=== PATIENT | female | born 1975 | race Caucasian/White ===

== ENCOUNTER 2019-11-28 17:06 | Emergency (ER) | payer OTHER, SELFPAY ==
[2019-11-28 17:27] VITALS: BP 145/82; PULSE 106; RESP 20; TEMP 37.2; O2SAT 98
--- NOTE | 2019-11-28 17:44 | ED.GENADULT ---
HPI - General Adult General Chief complaint: Unspecified Stated complaint: PARASITES? Time Seen by Provider: 11/28/19 17:20 Source: patient Mode of arrival: ambulatory Limitations: no limitations History of Present Illness HPI narrative: Patient is a 44-year-old female who presents to emergency department for evaluation of concern for parasite noting that a family member and her have been experiencing rash and irritation for the last 3 weeks have not seen anyone for this complaint patient on arrival resting comfortably in the room in no distress denies any pain Related Data Allergies Allergy/AdvReac Type Severity Reaction Status Date / Time No Known Allergies Allergy Verified 11/28/19 17:29 Review of Systems Review of Systems: All systems reviewed & are unremarkable except as noted in HPI and below Exam Narrative: Exam Narrative: GENERAL: Well-appearing, well-nourished, and in no acute distress. HEAD: Normocephalic, atraumatic. EYES: PERRLA and EOMI. ENT: Nares clear, no rhinorrhea or epistaxis. Mucous membranes moist. CHEST: Clear to auscultation. No respiratory distress. No wheezes rales or rhonchi HEART: Regular rate and rhythm. No murmur heard. EXTREMITIES: Normal range of motion. No edema. SKIN: Warm, dry, no rash. NEURO: No focal deficits. Alert and oriented x3. Cranial nerves II through XII grossly intact PSYCH: Normal mood and affect. Course Course Emergency Course: Patient in the room in no distress aware of case findings treatment plan and diagnosis agreeing to follow-up as directed or to return if symptoms worsen or concerns Vital Signs Vital signs: Vital Signs Temperature 98.9 F 11/28/19 17: Pulse Rate 106 H 11/28/19 17:27 Respiratory Rate 20 11/28/19 17:27 Blood Pressure 145/82 H 11/28/19 17:27 Pulse Oximetry 98 11/28/19 17:27 Temperature 98.9 F 11/28/19 17:27 Pulse Rate 106 H 11/28/19 17:27 Respiratory Rate 20 11/28/19 17:27 Blood Pressure 145/82 H 11/28/19 17:27 Pulse Oximetry 98 11/28/19 17:27 Medical Decision Making MDM Narrative Medical decision making narrative: Patient in the room in no distress referred to specialist agreeing to follow-up as directed Vital Signs Vital Signs: Vital Signs Temperature 98.9 F 11/28/19 17:27 Pulse Rate 106 H 11/28/19 17:27 Respiratory Rate 20 11/28/19 17:27 Blood Pressure 145/82 H 11/28/19 17:27 Pulse Oximetry 98 11/28/19 17:27 Temperature 98.9 F 11/28/19 17:27 Pulse Rate 106 H 11/28/19 17:27 Respiratory Rate 20 11/28/19 17:27 Blood Pressure 145/82 H 11/28/19 17:27 Pulse Oximetry 98 11/28/19 17:27 Discharge Plan Discharge Clinical Impression: Rash and nonspecific skin eruption Patient Disposition: Home, Self-Care Condition: Stable Instructions: Antibiotic Form, Acute Rash (ED) Additional Instructions: Follow up with your primary care doctor in 5-7 days for re-evaluation. Go to ER for worsening pain, vision changes, nausea/vomiting, fever/chills, weakness, chest pain, shortness of breath, numbness/tingling, slurred speech, difficulty walking, change in mental status etc. or any other concerns. Take any prescribed medications as directed. Follow-up/Referrals: UNKNOWN,DOCTOR [Primary Care Provider] - Dillon Murillo MD [Physician] -
[2019-11-28 17:56] LABS: Add Urine Microscopic? YES; Appearance Urine Cloudy (Clear); Bacteria Urine Trace /hpf; Bilirubin Urine Negative (Negative); Blood Urine 1+ (Negative); Color Urine Yellow (Yellow); Glucose Urine UA 3+ mg/dL (Negative); Ketones Urine Negative (Negative); Leukocyte Esterase Ur 2+ LEU/UL (Negative); Mucus Urine Rare /lpf; Nitrate Urine Negative (Negative); Protein Urine Negative (Negative); Specific Grav Ur 1.033 (1.001-1.035); Squamous Epithelial Cell Urine Many /hpf (Few); Urobilinogen Urine Negative mg/dL (<2.0)
== END 2019-11-28 18:29 | disposition home or self-care (01) ==
PROVIDERS: Emergency Medicine Emergency Medical Services; Emergency Provider Emergency Medicine
DX: R21 Rash and other nonspecific skin eruption (principal)
CPT/HCPCS: 80307; 81001; 87077; 87086; 87088; 99281; 99283

== ENCOUNTER 2020-11-19 23:15 | Emergency (ER) | payer OTHER, SELFPAY ==
[2020-11-19 23:24] VITALS: BP 120/63; PULSE 103; RESP 18; TEMP 36.2; O2SAT 100
--- NOTE | 2020-11-19 23:44 | ED.GENADULT ---
HPI - General Adult General Chief complaint: Extremity Injury, Lower Stated complaint: i think im having a blood clot on my leg Time Seen by Provider: 11/19/20 23:28 History of Present Illness HPI narrative: Patient is a 45-year-old female who presents the emergency department with chief complaint of leg pain. The patient reports that she has multiple varicose veins in her lower extremities and noticed that her left leg in the mid calf she had some slight swelling and pain. Patient reports the pain is worse with movement and improved with rest. Patient also reports that she has had dysuria and also has noticed that she has had a rash present on her abdominal wall. The patient wanted to stop all 3 things checked out while she was ER. Patient has not called her primary care physician patient denies trauma denies smoking denies any other medical problems. Related Data Allergies Allergy/AdvReac Type Severity Reaction Status Date / Time No Known Allergies Allergy Verified 11/28/19 17:29 Review of Systems Review of Systems: Narrative: A 10 system review of systems was completed on the patient and is negative except for what is stated in the HPI. Nursing and ancillary documentation was reviewed. PMFSH Comments Past medical history is negative Social history the patient denies smoking Exam Narrative: Exam Narrative: GENERAL: Well-appearing, well-nourished, and in no acute distress. HEAD: Normocephalic, atraumatic. EYES: PERRLA and EOMI. ENT: Nares clear, no rhinorrhea or epistaxis. Mucous membranes moist. NECK: Supple. CHEST: Clear to auscultation. No respiratory distress. HEART: Regular rate and rhythm. No murmur heard. Normal peripheral pulses. ABDOMEN: Soft, nontender, nondistended, normal active bowel sounds. EXTREMITIES: Normal range of motion. No edema. There are multiple varicose veins in the bilateral lower extremities there is tenderness of an area of varicosity in the left lower extremity in the calf. SKIN: Warm, dry, no rash. There is a zoster form rash present in the left lower quadrant of the abdomen radiating to the back NEURO: No focal deficits. Alert and oriented x3. PSYCH: Normal mood and affect. Course Vital Signs Vital signs: Vital Signs Temperature 36.2 C L 11/19/20 23:24 Pulse Rate 103 H 11/19/20 23:24 Respiratory Rate 18 11/19/20 23:24 Blood Pressure 120/63 11/19/20 23:24 Pulse Oximetry 100 11/19/20 23:24 Temperature 36.2 C L 11/19/20 23:24 Pulse Rate 103 H 11/19/20 23:24 Respiratory Rate 18 11/19/20 23:24 Blood Pressure 120/63 11/19/20 23:24 Pulse Oximetry 100 11/19/20 23:24 Medical Decision Making Vital Signs Vital Signs: Vital Signs Temperature 36.2 C L 11/19/20 23:24 Pulse Rate 103 H 11/19/20 23:24 Respiratory Rate 18 11/19/20 23:24 Blood Pressure 120/63 11/19/20 23:24 Pulse Oximetry 100 11/19/20 23:24 Temperature 36.2 C L 11/19/20 23:24 Pulse Rate 103 H 11/19/20 23:24 Respiratory Rate 18 11/19/20 23:24 Blood Pressure 120/63 11/19/20 23:24 Pulse Oximetry 100 11/19/20 23:24 Lab Data Result diagrams: 11/19/20 23:59 11/19/20 23:59 Labs: Lab Results 11/19/20 11/19/20 11/19/20 Range/Units 23:59 23:59 23:59 WBC 10.7 H (4.5-10.0) K/mm3 RBC 4.82 (4.2-5.4) M/mm3 Hgb 13.5 (12.0-15.0) g/dL Hct 41.0 (37.0-47.0) % MCV 85.1 (80-100) fl MCH 28.0 (26-34) pg MCHC 32.9 (32-36) g/dl RDW 13.7 (11.5-14.5) % Plt Count 301 (150-375) k/mm3 MPV 10.6 H (7.4-10.4) fl Immature Gran % (Auto) 0.9 H (0-0.5) % Neut % (Auto) 47.5 (45.5-73.1) % Lymph % (Auto) 40.5 (18.3-44.2) % [place] % (Auto) 5.6 (2.6-8.5) % Eos % (Auto) 4.8 H (0-4.4) % Baso % (Auto) 0.7 (0.2-1.2) % Lymph # (Auto) 4.35 H (0.9-3.2) K/mm3 [place] # (Auto) 0.6 (0.1-0.6) K/mm3 Eos # (Auto) 0.5 H (0-0.3) K/mm3 Baso # (Auto) 0.1 (0.0-0.1) K/mm3
[2020-11-20 00:22] LABS: Basophils Absolute Auto 0.1 K/mm3 (0.0-0.1); Basophils Percent Auto 0.7 % (0.2-1.2); Eosinophils Absolute Auto 0.5 K/mm3 (0-0.3); Eosinophils Percent Auto 4.8 % (0-4.4); Hemoglobin 13.5 g/dL (12.0-15.0); Immature Granulocyte Percent A 0.9 % (0-0.5); Lymphocytes Absolute Auto 4.35 K/mm3 (0.9-3.2); Lymphocytes Percent Auto 40.5 % (18.3-44.2); Mean Corpuscular HGB Conc 32.9 g/dl (32-36); Mean Corpuscular Volume 85.1 fl (80-100); Mean Platelet Volume 10.6 fl (7.4-10.4); Monocytes Absolute Auto 0.6 K/mm3 (0.1-0.6); Monocytes Percent Auto 5.6 % (2.6-8.5); Neutrophils Absolute Auto 5.1 K/mm3 (1.3-6.7); Neutrophils Percent Auto 47.5 % (45.5-73.1); Platelet Count Result 301 k/mm3 (150-375); Red Blood Count 4.82 M/mm3 (4.2-5.4); Red Cell Distribution Width 13.7 % (11.5-14.5); White Blood Count 10.7 K/mm3 (4.5-10.0)
[2020-11-20 00:27] LABS: INR 0.9; Prothrombin Time 12.4 Seconds (11.1-14.7)
[2020-11-20 00:28] LABS: Partial Thromboplastin Time 26.6 SECONDS (22.3-36.8)
[2020-11-20 00:33] LABS: Alanine Aminotransferase 26 U/L (4-35); Alkaline Phosphatase 122 U/L (38-126); Anion Gap 7 mmol/L (8-16); Aspartate Amino Transferase 20 U/L (14-36); Bilirubin,Total 0.4 mg/dL (0.2-1.3); Blood Urea Nitrogen 13 mg/dL (7-17); Calcium 8.9 mg/dL (8.4-10.2); Carbon Dioxide 27 mmol/L (22-30); Chloride 101 mmol/L (98-107); Estimated Glomerular Filt Rate > 60; Glucose 365 mg/dL (65-105); Sodium 135 mmol/L (137-145)
[2020-11-20 00:43] LABS: Atypical Lymphocytes Present; Platelet Estimate Adequate (Adequate)
[2020-11-20 01:30] LABS: Add Urine Microscopic? YES; Appearance Urine Clear (Clear); Bilirubin Urine Negative (Negative); Blood Urine Negative (Negative); Color Urine Yellow (Yellow); Glucose Urine UA 3+ mg/dL (Negative); Ketones Urine Negative (Negative); Leukocyte Esterase Ur Negative LEU/UL (Negative); Mucus Urine Rare /lpf; Nitrate Urine Negative (Negative); Protein Urine Negative (Negative); RBC Urine 0-2 /hpf (0-2); Squamous Epithelial Cell Urine Few /hpf (Few); Urobilinogen Urine Negative mg/dL (<2.0); WBC Urine 0-3 /hpf
== END 2020-11-20 01:51 | disposition home or self-care (01) ==
PROVIDERS: Emergency Provider Emergency Medicine
DX: B01.9 Varicella without complication (principal); M79.662 Pain in left lower leg; R73.9 Hyperglycemia, unspecified
CPT/HCPCS: 36415; 80053; 81001; 85025; 85380; 85610; 85730; 99283

== ENCOUNTER 2021-01-03 11:50 | Emergency (ER) | payer OTHER, SELFPAY ==
[2021-01-03 13:12] VITALS: BP 122/74; PULSE 89; RESP 16; TEMP 36.5; O2SAT 98
--- NOTE | 2021-01-03 14:35 | ED.GENADULT ---
HPI - General Adult General Chief complaint: Unspecified Stated complaint: wants covid testing Time Seen by Provider: 01/03/21 13:30 Source: patient Mode of arrival: ambulatory Limitations: no limitations History of Present Illness HPI narrative: Patient presents emergency department for Covid testing. Patient states she had flulike symptoms last week does not have any symptoms at this time. Patient states that her daughter had Covid-like symptoms and her did as well and tested positive. Review of Systems Review of Systems: Narrative: CONSTITUTIONAL: Denies fever, chills, or sweats. EYES: Denies visual changes, redness, or discharge. ENT: Denies rhinorrhea, congestion, sore throat, or otalgia. CARDIOVASCULAR: Denies chest pain, palpitations, or edema. RESPIRATORY: Denies cough or dyspnea. GASTROINTESTINAL: Denies abdominal pain, nausea, vomiting, or diarrhea. GENITOURINARY: Denies dysuria or hematuria. SKIN: Denies rash or itching. MUSCULOSKELETAL: Denies back pain, joint pain, or myalgia. NEUROLOGIC: Denies headache, numbness, dizziness, or weakness. PSYCHIATRIC: Denies anxiety or depression. PMFSH Social History Social History Gender identity (if verbalized by the patient): Female Exam Narrative: Exam Narrative: GENERAL: Well-appearing, well-nourished, and in no acute distress. HEAD: Normocephalic, atraumatic. EYES: PERRLA and EOMI. NECK: Supple. Range of motion intact CHEST: No respiratory distress. No tachypnea. EXTREMITIES: Normal range of motion. No edema. SKIN: Warm, dry, no rash. NEURO: No focal deficits. Alert and oriented x3. PSYCH: Normal mood and affect. Course Vital Signs Vital signs: Vital Signs Temperature 97.7 F 01/03/21 13:12 Pulse Rate 89 01/03/21 13:12 Respiratory Rate 16 01/03/21 13:12 Blood Pressure 122/74 01/03/21 13:12 Pulse Oximetry 98 01/03/21 13:12 Temperature 97.7 F 01/03/21 13:12 Pulse Rate 89 01/03/21 13:12 Respiratory Rate 16 01/03/21 13:12 Blood Pressure 122/74 01/03/21 13:12 Pulse Oximetry 98 01/03/21 13:12 Medical Decision Making MDM Narrative Medical decision making narrative: Patient instructed of the need to quarantine. Patient instructed need to follow-up with Dr. Irby for Covid test results. Approximately 48 hours. Patient return to emergency department if she develops any emergent symptoms. Vital Signs Vital Signs: Vital Signs Temperature 97.7 F 01/03/21 13:12 Pulse Rate 89 01/03/21 13:12 Respiratory Rate 16 01/03/21 13:12 Blood Pressure 122/74 01/03/21 13:12 Pulse Oximetry 98 01/03/21 13:12 Temperature 97.7 F 01/03/21 13:12 Pulse Rate 89 01/03/21 13:12 Respiratory Rate 16 01/03/21 13:12 Blood Pressure 122/74 01/03/21 13:12 Pulse Oximetry 98 01/03/21 13:12 Discharge Plan Discharge Clinical Impression: Close exposure to COVID-19 virus Patient Disposition: Home, Self-Care Condition: Stable Instructions: Antibiotic Form, COVID-19: Slow the Coronavirus Spread (ED) Additional Instructions: Follow the health department guidelines regarding quarantine instructions. Call your primary care-Dr. Irby in 48 to 72 hours for Covid test results. Return to emergency department if you have any emergent symptoms. Follow-up/Referrals: PHYSICIAN,FREIGHT FORWARDER [Primary Care Provider] - [facility], [Physician] - Stand Alone Forms: Work/School Release IP Time of Disposition: 14:37
[2021-01-03 14:55] VITALS: BP 138/75; PULSE 78; RESP 16; O2SAT 100
[2021-01-04 00:53] LABS: SARS-CoV-2 RNA PCR Positive
== END 2021-01-03 14:55 | disposition home or self-care (01) ==
PROVIDERS: Physician Assistant; Emergency Provider Emergency Medicine
DX: U07.1 COVID-19 (principal)
CPT/HCPCS: 99283; C9803; U0003; U0005

== ENCOUNTER 2021-03-22 19:18 | Emergency (ER) | payer OTHER, SELFPAY ==
[2021-03-22 19:49] VITALS: BP 121/81; PULSE 99; RESP 17; TEMP 36.6; O2SAT 97
[2021-03-22 20:00] LABS: Glucose Point of Care 442 mg/dl (65-105)
[2021-03-22 20:49] LABS: Basophils Absolute Auto 0.1 K/mm3 (0.0-0.1); Basophils Percent Auto 0.5 % (0.2-1.2); Eosinophils Absolute Auto 0.5 K/mm3 (0-0.3); Eosinophils Percent Auto 4.5 % (0-4.4); Hemoglobin 13.2 g/dL (12.0-15.0); Immature Granulocyte Absolute 0.07 K/mm3 (0.00-0.031); Immature Granulocyte Percent A 0.7 % (0-0.5); Lymphocytes Absolute Auto 3.79 K/mm3 (0.9-3.2); Lymphocytes Percent Auto 36.6 % (18.3-44.2); Mean Corpuscular Hemoglobin 27.8 pg (26-34); Mean Corpuscular Volume 84.2 fl (80-100); Mean Platelet Volume 10.7 fl (7.4-10.4); Monocytes Absolute Auto 0.5 K/mm3 (0.1-0.6); Monocytes Percent Auto 5.2 % (2.6-8.5); Neutrophils Absolute Auto 5.4 K/mm3 (1.3-6.7); Neutrophils Percent Auto 52.5 % (45.5-73.1); Platelet Count Result 302 k/mm3 (150-375); Red Blood Count 4.75 M/mm3 (4.2-5.4); Red Cell Distribution Width 13.2 % (11.5-14.5); White Blood Count 10.4 K/mm3 (4.5-10.0)
[2021-03-22 21:00] LABS: Alanine Aminotransferase 17 U/L (4-35); Albumin Level 4.1 g/dL (3.5-5.1); Alkaline Phosphatase 124 U/L (38-126); Anion Gap 12 mmol/L (8-16); Aspartate Amino Transferase 21 U/L (14-36); Bilirubin,Total 0.3 mg/dL (0.2-1.3); Blood Urea Nitrogen 8 mg/dL (7-17); Calcium 9.5 mg/dL (8.4-10.2); Carbon Dioxide 23 mmol/L (22-30); Chloride 100 mmol/L (98-107); Estimated Glomerular Filt Rate > 60; Glucose 436 mg/dL (65-105); Magnesium 1.8 mg/dL (1.6-2.3); Phosphorus 4.5 mg/dL (2.5-4.5); Sodium 135 mmol/L (137-145)
[2021-03-22 21:13] LABS: Beta-Hydroxybutyrate/Acetoacetate 0.07 mmol/L (0.02-0.27)
[2021-03-22 21:29] LABS: Add Urine Microscopic? YES; Appearance Urine Clear (Clear); Bilirubin Urine Negative (Negative); Blood Urine Negative (Negative); Color Urine Straw (Yellow); Glucose Urine UA 3+ mg/dL (Negative); Ketones Urine Negative (Negative); Leukocyte Esterase Ur Negative LEU/UL (Negative); Nitrate Urine Negative (Negative); Protein Urine Negative (Negative); RBC Urine 0-2 /hpf (0-2); Squamous Epithelial Cell Urine Rare /hpf (Few); Urobilinogen Urine Negative mg/dL (<2.0); WBC Urine 0-3 /hpf
[2021-03-22 21:33] LABS: Specific Grav Ur 1.037 (1.001-1.035)
[2021-03-22 21:58] VITALS: BP 134/85; PULSE 96; RESP 18; TEMP 36.8; O2SAT 96
[2021-03-22 22:06] VITALS: BP 130/99; PULSE 92; RESP 18; O2SAT 99
[2021-03-22 22:07] LABS: Glucose Point of Care 326 mg/dl (65-105)
[2021-03-22] MEDS: SODIUM CHLORIDE 0.9% IV 1,000 ML 999 ML IV CONT ×2 (22:28)
--- NOTE | 2021-03-22 22:30 | ED.GENADULT ---
HPI - General Adult General Chief complaint: Recheck/Abnormal Lab/Rx Stated complaint: blood sugar 575-urgent care sent me Time Seen by Provider: 03/22/21 22:07 History of Present Illness HPI narrative: Patient 45-year-old female presents the emergency department with chief complaint of hyperglycemia and yeast infection. The patient reports that she has history of hyperglycemia is supposed to be on medications for diabetes but has not seen a doctor in 1 to 2 years the patient states that she is just not felt like it is necessary to go see a doctor and to manage her blood sugars patient states also currently she has a yeast infection and reports that whenever she went to the bathroom today there was blood on the toilet paper whenever she wipes but was straining significantly whenever she had a bowel move. Patient reports that she urinates quite frequently reports that she is not had any fever or chills Related Data Allergies Allergy/AdvReac Type Severity Reaction Status Date / Time No Known Allergies Allergy Verified 03/22/21 22:24 Review of Systems Review of Systems: Narrative: A 10 system review of systems was completed on the patient and is negative except for what is stated in the HPI. Nursing and ancillary documentation was reviewed. [facility] Social History Social History Gender identity (if verbalized by the patient): Female Comments Past medical history significant for diabetes that is poorly controlled Exam Narrative: Exam Narrative: GENERAL: Well-appearing, well-nourished, and in no acute distress. HEAD: Normocephalic, atraumatic. EYES: PERRLA and EOMI. ENT: Nares clear, no rhinorrhea or epistaxis. Mucous membranes moist. NECK: Supple. CHEST: Clear to auscultation. No respiratory distress. HEART: Regular rate and rhythm. No murmur heard. Normal peripheral pulses. ABDOMEN: Soft, nontender, nondistended, normal active bowel sounds. EXTREMITIES: Normal range of motion. No edema. SKIN: Warm, dry, no rash. NEURO: No focal deficits. Alert and oriented x3. PSYCH: Normal mood and affect. Course Vital Signs Vital signs: Vital Signs Temperature 36.6 C 03/22/21 19:49 Pulse Rate 99 03/22/21 19:49 Respiratory Rate 17 03/22/21 19:49 Blood Pressure 121/81 03/22/21 19:49 Pulse Oximetry 97 03/22/21 19:49 Temperature 36.8 C 03/22/21 21:58 Pulse Rate 92 03/22/21 22:06 Respiratory Rate 18 03/22/21 22:06 Blood Pressure 130/99 H 03/22/21 22:06 Pulse Oximetry 99 03/22/21 22:06 Medical Decision Making Vital Signs Vital Signs: Vital Signs Temperature 36.6 C 03/22/21 19:49 Pulse Rate 99 03/22/21 19:49 Respiratory Rate 17 03/22/21 19:49 Blood Pressure 121/81 03/22/21 19:49 Pulse Oximetry 97 03/22/21 19:49 Temperature 36.8 C 03/22/21 21:58 Pulse Rate 92 03/22/21 22:06 Respiratory Rate 18 03/22/21 22:06 Blood Pressure 130/99 H 03/22/21 22:06 Pulse Oximetry 99 03/22/21 22:06 Lab Data Result diagrams: 03/22/21 20:36 03/22/21 20:36 Labs: Lab Results 03/22/21 03/22/21 03/22/21 Range/Units 19:58 20:36 20:36 WBC 10.4 H (4.5-10.0) K/mm3 RBC 4.75 (4.2-5.4) M/mm3 Hgb 13.2 (12.0-15.0) g/dL Hct 40.0 (37.0-47.0) % MCV 84.2 (80-100) fl MCH 27.8 (26-34) pg MCHC 33.0 (32-36) g/dl RDW 13.2 (11.5-14.5) % Plt Count 302 (150-375) k/mm3 MPV 10.7 H (7.4-10.4) fl Immature Gran % (Auto) 0.7 H (0-0.5) % Neut % (Auto) 52.5 (45.5-73.1) % Lymph % (Auto) 36.6 (18.3-44.2) % [place] % (Auto) 5.2 (2.6-8.5) % Eos % (Auto) 4.5 H (0-4.4) % Baso % (Auto) 0.5 (0.2-1.2) % Lymph # (Auto) 3.79 H (0.9-3.2) K/mm3 [place] # (Auto) 0.5 (0.1-0.6) K/mm3 Eos # (Auto) 0.5 H (0-0.3) K/mm3 Baso # (Auto) 0.1 (0.0-0.1) K/mm3 Abs Immat Gran (auto) 0.07 H (0.00-0.031) K/mm3 Absolute Neuts (auto) 5
--- NOTE | 2021-03-22 23:43 | PC.NURSE ---
Assumed care of pt. at this time. Report from EDE Yo
[2021-03-23] MEDS: diphenhydrAMINE HCl CAP 25 MG CAPSULE 50 MG PO
[2021-03-23 00:01] VITALS: BP 110/63; PULSE 64; RESP 17; O2SAT 98
[2021-03-23 05:58] LABS: Glucose Point of Care 288 mg/dl (65-105)
== END 2021-03-23 00:02 | disposition home or self-care (01) ==
PROVIDERS: Family Medicine; Emergency Provider Emergency Medicine
DX: E11.65 Type 2 diabetes mellitus with hyperglycemia (principal); B37.3 Candidiasis of vulva and vagina; Z91.14 Patient's other noncompliance with medication regimen
CPT/HCPCS: 36415; 80053; 81001; 82010; 82948; 83735; 84100; 85025; 86850; 86900; 86901; 96360; 96361; 99283; A9270; J7030

== ENCOUNTER 2021-09-03 17:21 | Emergency (ER) | payer OTHER, SELFPAY ==
[2021-09-03 17:37] VITALS: BP 148/70; PULSE 73; RESP 20; TEMP 37.1; O2SAT 98
--- NOTE | 2021-09-03 19:46 | ED.GENADULT ---
HPI - General Adult General Chief complaint: Fever Stated complaint: fever Time Seen by Provider: 09/03/21 19:20 History of Present Illness HPI narrative: Patient is a 46-year-old female who presents ER with multiple complaints. First complaint is that she has swelling near the nail of her left third digit. Developed over the last day. No drainage. Patient also reports when she take showers over the last week she feels like her body is burning. This is also a new change for her. Patient additionally reports that she is having burning urination. She is unsure if she has a yeast infection or UTI. Denies any new itching or redness around her vagina or vaginal discharge. Patient also reports new swelling at the base of her left earlobe that is tender. Related Data Allergies Allergy/AdvReac Type Severity Reaction Status Date / Time No Known Allergies Allergy Verified 09/03/21 19:24 Review of Systems Review of Systems: All systems reviewed & are unremarkable except as noted in HPI and below Constitutional: Constitutional: Denies chills, Denies fever(s) and Denies weakness ENT: Denies nasal congestion and Denies sore throat Gastrointestinal: Gastrointestinal: Denies abdominal pain, Denies nausea and Denies vomiting Genitourinary: Genitourinary: Denies abnormal vaginal bleeding, Reports nocturia, Reports dysuria, Denies flank pain and Denies vaginal discharge Musculoskeletal: Musculoskeletal: Denies arthralgias, Denies joint swelling and Denies muscle cramps Integumentary/Breasts: Skin/Breast: Denies pruritus and Denies erythema Comments: Skin burning PMFSH Past Medical History Medical History (Updated 09/03/21 @ 21:33 by Raghu Coreas MD) Diabetes Surgical History Surgical History (Updated 09/03/21 @ 19:50 by Raghu Coreas MD) History of section Social History Social History Gender identity (if verbalized by the patient): Female Exam Narrative: GENERAL: Well-appearing, well-nourished, and in no acute distress. HEAD: Normocephalic, atraumatic. ENT: Mucous membranes moist. TMs normal bilaterally. Swelling of the base left earlobe consistent with a cyst. No drainage or cellulitis. CHEST: Clear to auscultation. No respiratory distress. HEART: Regular rate and rhythm. Normal peripheral pulses. ABDOMEN: Soft, nontender, nondistended. EXTREMITIES: Normal range of motion. No edema. Paronychia left third digit. SKIN: Warm, dry, no rash. NEURO: Alert and oriented x3. PSYCH: Normal mood and affect. Course Course Emergency Course: Patient informed of results. Will start on antibiotics for UTI and this should also cover her finger infection. Additionally will give Diflucan since she thinks she has a yeast infection and we are coming putting her on antibiotics anyways. Patient does not take Metformin anymore because she states it does not work for her. Recommend she follow-up with her PCP. Vital Signs Vital signs: Vital Signs Temperature 98.8 F 09/03/21 17:37 Pulse Rate 73 09/03/21 17:37 Respiratory Rate 20 09/03/21 17:37 Blood Pressure 148/70 H 09/03/21 17:37 Pulse Oximetry 98 09/03/21 17:37 Temperature 98.8 F 09/03/21 17:37 Pulse Rate 73 09/03/21 17:37 Respiratory Rate 20 09/03/21 17:37 Blood Pressure 148/70 H 09/03/21 17:37 Pulse Oximetry 98 09/03/21 17:37 Procedures Abscess I/D hand: Date of Incision: 09/03/21 Time of Incision: 19:54 Side (if applicable): left Local Anesthetic: none Technique: needle aspiration Packing used?: none I&D Results: Pus Abcess I&D Additional Comments: Left third digit paronychia drained. Medical Decision Making Vital Signs Vital Signs: Vital Signs Temperature 98.8 F 09/03/21 17:37 Pulse Rate 73 09/03/21 17:37 Respiratory Rate 20 09/03/21 17:37 Blood Pressure 148/70 H 09/03/21 17:37 Pul
[2021-09-03 19:53] LABS: Basophils Absolute Auto 0.1 K/mm3 (0.0-0.1); Basophils Percent Auto 0.5 % (0.2-1.2); Eosinophils Absolute Auto 0.5 K/mm3 (0-0.3); Eosinophils Percent Auto 4.7 % (0-4.4); Hematocrit 37.9 % (37.0-47.0); Hemoglobin 12.9 g/dL (12.0-15.0); Immature Granulocyte Absolute 0.06 K/mm3 (0.00-0.031); Immature Granulocyte Percent A 0.5 % (0-0.5); Lymphocytes Absolute Auto 3.61 K/mm3 (0.9-3.2); Lymphocytes Percent Auto 31.1 % (18.3-44.2); Mean Corpuscular Hemoglobin 29.7 pg (26-34); Mean Corpuscular Volume 87.1 fl (80-100); Mean Platelet Volume 10.3 fl (7.4-10.4); Monocytes Absolute Auto 0.6 K/mm3 (0.1-0.6); Monocytes Percent Auto 5.4 % (2.6-8.5); Neutrophils Absolute Auto 6.7 K/mm3 (1.3-6.7); Neutrophils Percent Auto 57.8 % (45.5-73.1); Platelet Count Result 266 k/mm3 (150-375); Red Blood Count 4.35 M/mm3 (4.2-5.4); Red Cell Distribution Width 13.1 % (11.5-14.5); White Blood Count 11.6 K/mm3 (4.5-10.0)
[2021-09-03 20:03] LABS: Alanine Aminotransferase 17 U/L (4-35); Alkaline Phosphatase 129 U/L (38-126); Anion Gap 8 mmol/L (8-16); Aspartate Amino Transferase 20 U/L (14-36); Bilirubin,Total 0.3 mg/dL (0.2-1.3); Blood Urea Nitrogen 16 mg/dL (7-17); Calcium 9.5 mg/dL (8.4-10.2); Carbon Dioxide 24 mmol/L (22-30); Chloride 98 mmol/L (98-107); Estimated Glomerular Filt Rate > 60; Glucose 384 mg/dL (65-110); Potassium 4.2 mmol/L (3.4-5.0); Sodium 130 mmol/L (137-145)
[2021-09-03 21:07] LABS: Add Urine Microscopic? YES; Appearance Urine Cloudy (Clear); Bilirubin Urine Negative (Negative); Blood Urine 2+ (Negative); Color Urine Yellow (Yellow); Glucose Urine UA 3+ mg/dL (Negative); Ketones Urine Negative (Negative); Leukocyte Esterase Ur 3+ LEU/UL (Negative); Mucus Urine Rare /lpf; Nitrate Urine Negative (Negative); Protein Urine Negative (Negative); Squamous Epithelial Cell Urine Moderate /hpf (Few); Urobilinogen Urine Negative mg/dL (<2.0); WBC Urine 21-30 /hpf
[2021-09-03 21:08] LABS: Specific Grav Ur 1.031 (1.001-1.035)
--- NOTE | 2021-09-03 21:57 | PC.NURSE ---
charted on wrong pt for cardiac assessment, disregard cardiac assessment by this RN.
[2021-09-03 21:59] VITALS: PULSE 69; PULSE 84; RESP 16; RESP 18; TEMP 36.7; O2SAT 100; O2SAT 98
== END 2021-09-03 22:01 | disposition home or self-care (01) ==
PROVIDERS: Emergency Medicine; Emergency Provider Emergency Medicine
DX: L03.012 Cellulitis of left finger (principal); N39.0 Urinary tract infection, site not specified; E11.9 Type 2 diabetes mellitus without complications
CPT/HCPCS: 10160; 36415; 80053; 81001; 85025; 87077; 87086; 87088; 99283

== ENCOUNTER 2022-07-11 11:04 | Emergency (ER) | payer OTHER, SELFPAY ==
--- NOTE | ~2022-07-11 | XR_ITS ---
EXAMINATION: XR chest 2V DATE: 07/11/2022 12:31 INDICATION: Wheezing and cough. TECHNIQUE: Frontal and lateral views of the chest were obtained. COMPARISON: CT abdomen and pelvis 07/25/2019 FINDINGS: There is mild atelectasis at the lung bases. No pleural effusion or pneumothorax. The heart size is normal. Surgical clips in the right upper quadrant are likely from cholecystectomy. IMPRESSION: 1. Mild atelectasis at the lung bases. Reviewed, dictated and finalized at location A.
[2022-07-11 11:11] VITALS: BP 130/63; PULSE 98; RESP 16; TEMP 36.2; O2SAT 97
--- NOTE | 2022-07-11 11:43 | ED.URI ---
HPI - URI/Sore Throat General Chief Complaint: Upper Respiratory Infection Stated Complaint: MULTIPLE C/O Time Seen by Provider: 07/11/22 11:37 History of Present Illness HPI Narrative: Patient is a 47-year-old female here for evaluation of upper respiratory type symptoms for the past 5 days. Patient reports nasal congestion, productive cough with green sputum, wheezing for the past 5 days. She is attempted OTC medications without relief. She denies any fevers, chills, chest pain, difficulty breathing, leg swelling, abdominal pain, nausea or vomiting. She does have a history of pneumonia and states that this feels similar. She is not a smoker, denies any other past medical history. Related Data Allergies Allergy/AdvReac Type Severity Reaction Status Date / Time No Known Allergies Allergy Verified 07/11/22 11:17 Review of Systems Review of Systems: Gen: Denies fevers or chills Eyes: Denies eye pain or visual change ENT: Reports congestion. Respiratory: Denies shortness of breath or cough CV: Denies chest pain or palpitations GI: Denies abdominal pain nausea, emesis or diarrhea denies burning, urgency, frequency or hematuria Musculoskeletal: Denies back pain or muscle pain Neuro: Denies numbness, tingling, weakness or focal weakness Skin: Denies rash Except as documented, all other systems reviewed and negative PMFSH Past Medical History Medical History Diabetes Surgical History Surgical History History of section Social History Social History (System 09/12/21 @ 08:09 by Christiano Stevenson) Gender identity (if verbalized by the patient): Female Exam Narrative: APPEARANCE: Well appearing, no pain in distress, well-nourished. Head: Normocephalic and atraumatic. EYES: PERRLA/EOMI, conjunctivae clear NOSE: No nasal drainage EARS: External ear normal in appearance THROAT: No exudates, tonsillar deviation, tonsillar swelling. Oropharynx is clear. Mucous membranes are moist. NECK: Supple. No adenopathy, no masses. RESPIRATORY: Expiratory wheezing throughout lung prajapati. Airway patent, respirations nonlabored. CARDIOVASCULAR: Regular rate and rhythm without murmurs, rubs, or gallops. ABDOMINAL: Normoactive bowel sounds. Soft, nontender, nondistended. No rebound tenderness or guarding. MUSCULOSKELETAL: Extremities are warm and well-perfused. Moves all extremities well. No edema. NEURO: Normal speech. No focal neurologic deficits. SKIN: Skin is warm and dry. No rashes. PSYCHIATRIC: Normal affect/mood. Course Vital Signs Vital signs: Vital Signs Temperature 97.1 F L 07/11/22 11:11 Pulse Rate 98 07/11/22 11:11 Respiratory Rate 16 07/11/22 11:11 Blood Pressure 130/63 07/11/22 11:11 Pulse Oximetry 97 07/11/22 11:11 Temperature 97.1 F L 07/11/22 11:11 Pulse Rate 84 07/11/22 12:03 Respiratory Rate 18 07/11/22 12:03 Blood Pressure 130/63 07/11/22 11:11 Pulse Oximetry 97 07/11/22 11:11 MDM - URI/Sore Throat MDM Narrative Medical decision making narrative: 47-year-old female here for evaluation of upper respiratory infectious symptoms for the past 3 days. Her vital signs are normal, no hypoxia. Her chest x-ray shows mild atelectasis at the lung bases but no pneumonia. COVID and flu are negative. She was given a breathing treatment and Tessalon Perles in the ED with improvement of her symptoms. Likely viral URI. Patient was given Tessalon Perles in ED and rx as an outpatient, she was given return precautions and she voiced understanding. Lab Data Labs: Lab Results 07/11/22 Range/Units 11:47 Influenza A (RT-PCR) Negative (Negative) Influenza B (RT-PCR) Negative (Negative) SARS-CoV-2 RNA (RT-PCR) Negative Discharge Plan Discharge Clinical Impression: Upper respiratory infection Patient Disposition: Home, Self
[2022-07-11] MEDS: ALBUTEROL SULFATE NEB 2.5 MG/3 ML INH INHALATION (11:56)
[2022-07-11 11:57] VITALS: PULSE 82; RESP 18
[2022-07-11 12:03] VITALS: PULSE 84; RESP 18
[2022-07-11 12:32] LABS: Influenza A QL RT-PCR Negative (Negative); Influenza B QL RT-PCR Negative (Negative); SARS-CoV-2 RNA PCR Negative
[2022-07-11] MEDS: BENZONATATE 100 MG CAPSULE 200 MG PO (13:12)
== END 2022-07-11 13:16 | disposition home or self-care (01) ==
PROVIDERS: Physician Assistant; Emergency Provider Emergency Medicine
DX: J06.9 Acute upper respiratory infection, unspecified (principal); Z20.822 Contact with and (suspected) exposure to COVID-19; E11.9 Type 2 diabetes mellitus without complications; Z79.84 Long term (current) use of oral hypoglycemic drugs
CPT/HCPCS: 71046; 87502; 94640; 99283; A9270; C9803; U0003; U0005

== ENCOUNTER 2024-06-14 13:17 | Emergency (ER) | payer OTHER, SELFPAY ==
[2024-06-14 13:57] VITALS: BP 116/81; PULSE 87; RESP 15; TEMP 36.6; O2SAT 97
--- NOTE | 2024-06-14 15:22 | ED.GENADULT ---
HPI - General Adult General Chief complaint: Skin/Abscess/Foreign Body Stated complaint: itchy Time Seen by Provider: 06/14/24 15:11 History of Present Illness HPI narrative: Patient is a 49-year-old female who presents emergency department with chief complaint of itching all over. Patient reports the last few weeks she has been itching over her entire body including her hair and her pubic hair. Patient reports that she has had multiple spots over her body that will not be relieved with scratching the patient reports no abscess and was denies fever room Related Data Allergies Allergy/AdvReac Type Severity Reaction Status Date / Time No Known Allergies Allergy Verified 07/11/22 11:17 Review of Systems Review of Systems: A 10 system review of systems was completed on the patient and is negative except for what is stated in the HPI. Nursing and ancillary documentation was reviewed. PMFSH Past Medical History Medical History Diabetes Surgical History Surgical History History of section Social History Social History Gender identity (if verbalized by the patient): Female Exam Narrative: GENERAL: Well-appearing, well-nourished, and in no acute distress. HEAD: Normocephalic, atraumatic. EYES: PERRLA and EOMI. ENT: Nares clear, no rhinorrhea or epistaxis. Mucous membranes moist. NECK: Supple. CHEST: Clear to auscultation. No respiratory distress. HEART: Regular rate and rhythm. No murmur heard. Normal peripheral pulses. ABDOMEN: Soft, nontender, nondistended, normal active bowel sounds. EXTREMITIES: Normal range of motion. No edema. SKIN: Warm, dry, no rash. Multiple nits and lice present and the scalp NEURO: No focal deficits. Alert and oriented x3. PSYCH: Normal mood and affect. Course Vital Signs Vital signs: Vital Signs Temperature 36.6 C 06/14/24 13:57 Pulse Rate 87 06/14/24 13:57 Respiratory Rate 15 06/14/24 13:57 Blood Pressure 116/81 06/14/24 13:57 Pulse Oximetry 97 06/14/24 13:57 Temperature 36.6 C 06/14/24 13:57 Pulse Rate 87 06/14/24 13:57 Respiratory Rate 15 06/14/24 13:57 Blood Pressure 116/81 06/14/24 13:57 Pulse Oximetry 97 06/14/24 13:57 Medical Decision Making MDM Narrative Medical decision making narrative: Differential diagnosis includes head lice, scabies Vital Signs Vital Signs: Vital Signs Temperature 36.6 C 06/14/24 13:57 Pulse Rate 87 06/14/24 13:57 Respiratory Rate 15 06/14/24 13:57 Blood Pressure 116/81 06/14/24 13:57 Pulse Oximetry 97 06/14/24 13:57 Temperature 36.6 C 06/14/24 13:57 Pulse Rate 87 06/14/24 13:57 Respiratory Rate 15 06/14/24 13:57 Blood Pressure 116/81 06/14/24 13:57 Pulse Oximetry 97 06/14/24 13:57 Discharge Plan Discharge Clinical Impression: Head lice Patient Disposition: Home, Self-Care Condition: Stable Instructions: Antibiotic Form, Permethrin (On the skin), Pediculosis (ED) Prescriptions: New permethrin [Elimite] 5 % cream 1 applic topical Q14D Qty: 60 0RF Rx Instructions: apply second treatment 14 days after first treatment if live lice remain No Action metformin 500 mg tablet 500 mg PO BID Qty: 60 0RF Rx Instructions: For the first week take 1 tablet daily then progressed to 1 tablet twice daily fluconazole [Diflucan] 150 mg tablet 150 mg PO Q72H Qty: 2 0RF Rx Instructions: as a single dose may repeat dose in 72 hours if symptoms have not improved sulfamethoxazole-trimethoprim [Bactrim DS] 800-160 mg tablet 1 tablet PO Q12H Qty: 14 0RF fluconazole [Diflucan] 150 mg tablet 150 mg PO ONCE Qty: 1 0RF Rx Instructions: as a single dose benzonatate 200 mg capsule 200 mg PO BI
== END 2024-06-14 16:08 | disposition home or self-care (01) ==
PROVIDERS: Emergency Provider Emergency Medicine
DX: B85.0 Pediculosis due to Pediculus humanus capitis (principal); E11.9 Type 2 diabetes mellitus without complications
CPT/HCPCS: 99283

== ENCOUNTER 2024-08-24 16:26 | Emergency (ER) | payer SELFPAY ==
[2024-08-24 16:40] VITALS: BP 136/75; PULSE 93; RESP 16; TEMP 36.3; O2SAT 99
--- NOTE | 2024-08-24 19:54 | ED_ITS ---
HPI - Ear Problem General Chief complaint: Ear Stated complaint: right ear pain Time Seen by Provider: 08/24/24 19:34 History of Present Illness HPI Narrative: 49-year-old female presents to the emergency department for right ear pain for 1 day. Denies injury or trauma, fever, drainage, headache. Related Data Allergies Allergy/AdvReac Type Severity Reaction Status Date / Time No Known Allergies Allergy Verified 08/24/24 16:27 Review of Systems Review of Systems: All systems reviewed & are unremarkable except as noted in HPI and below PMFSH Past Medical History Medical History Diabetes Surgical History Surgical History History of section Social History Social History Gender identity (if verbalized by the patient): Female Exam Narrative: GENERAL: Well-appearing, well-nourished, and in no acute distress. HEAD: Normocephalic, atraumatic. EYES: EOMI. ENT: Nares clear, no rhinorrhea or epistaxis. Mucous membranes moist. Right TM is sheehan nonbulging. Right canal erythematous with mild amount of purulence, no significant edema. Pain with movement of pinna. No mastoid tenderness or erythema. NECK: Supple. No nuchal rigidity. CHEST: Clear to auscultation. No respiratory distress. HEART: Regular rate and rhythm. No murmur heard. Normal peripheral pulses. EXTREMITIES: Normal range of motion. No edema. SKIN: Warm, dry, no rash. NEURO: No focal deficits. Alert and oriented x3 Course Vital Signs Vital signs: Vital Signs Temperature 97.4 F L 08/24/24 16:40 Pulse Rate 93 08/24/24 16:40 Respiratory Rate 16 08/24/24 16:40 Blood Pressure 136/75 08/24/24 16:40 Pulse Oximetry 99 08/24/24 16:40 Oxygen Delivery Room Air 08/24/24 16:40 Temperature 97.4 F L 08/24/24 16:40 Pulse Rate 93 08/24/24 16:40 Respiratory Rate 16 08/24/24 16:40 Blood Pressure 136/75 08/24/24 16:40 Pulse Oximetry 99 08/24/24 16:40 Oxygen Delivery Room Air 08/24/24 16:40 Medical Decision Making MDM Narrative Medical decision making narrative: 49-year-old female presents emergency department for right ear pain for 1 day. Vitals are stable. She is afebrile nontoxic appearing. Exam is significant for otitis externa. TM is sheehan nonbulging. No pain to the mastoid. Patient started on ofloxacin drops advised follow-up with her PCP. Discussed strict ED return precautions. She is agreeable with the plan verbalized understanding. Discharged in stable condition Vital Signs Vital Signs: Vital Signs Temperature 97.4 F L 08/24/24 16:40 Pulse Rate 93 08/24/24 16:40 Respiratory Rate 16 08/24/24 16:40 Blood Pressure 136/75 08/24/24 16:40 Pulse Oximetry 99 08/24/24 16:40 Oxygen Delivery Room Air 08/24/24 16:40 Temperature 97.4 F L 08/24/24 16:40 Pulse Rate 93 08/24/24 16:40 Respiratory Rate 16 08/24/24 16:40 Blood Pressure 136/75 08/24/24 16:40 Pulse Oximetry 99 08/24/24 16:40 Oxygen Delivery Room Air 08/24/24 16:40 Discharge Plan Discharge Clinical Impression: Otitis externa Qualifiers: Otitis externa type: unspecified type Chronicity: acute Laterality: right Qualified Code(s): H60.501 - Unspecified acute noninfective otitis externa, right ear Patient Disposition: Home, Self-Care Condition: Stable Instructions: Antibiotic Form, Swimmer's Ear (ED), Earache (ED) Additional Instructions: Your evaluated in the emergency department for right ear pain. Your exam shows infection of the ear canal. Please use the drops as directed follow-up with her primary care provider. Return to the emergency department if develop a fever, significantly worsening pain, or other concerning symptoms. Please refrain from swimming or dunking your head and water or place any objects in her ear including Q-tips. Take Tylenol as needed for pain. Prescriptions: New ofloxacin 0.3 % drops 10 drp RIGHT EAR DAILY 7 Days Qty: 5 0RF No Action metformin 500 mg tablet 500 mg PO BID Qty: 60 0RF Rx Instructions: For the first week take 1 tablet daily then progressed to 1 tablet twice daily fluconazole [Diflucan] 150 mg tablet 150 mg PO Q72H Qty: 2 0RF Rx Instructions: as a single dose may repeat dose in 72 hours if symptoms have not improved sulfamethoxazole-trimethoprim [Bactrim DS] 800-160 mg tablet 1 tablet PO Q12H Qty: 14 0RF fluconazole [Diflucan] 150 mg tablet 150 mg PO ONCE Qty: 1 0RF Rx Instructions: as a single dose benzonatate 200 mg capsule 200 mg PO BID PRN (Reason: cough) Qty: 30 0RF permethrin [Elimite] 5 % cream 1 applic topical Q14D Qty: 60 0RF Rx Instructions: apply second treatment 14 days after first treatment if live lice remain fluconazole 150 mg tablet 150 mg PO DAILY Qty: 1 0RF Rx Instructions: administer on day 1 of therapy Follow-up/Referrals: Seth Correa MD [Physician] - 1 Day PHYSICIAN,YOUTH SERVICES SPECIALIST [Primary Care Provider] -
== END 2024-08-24 20:03 | disposition home or self-care (01) ==
PROVIDERS: Emergency Provider Physician Assistant
DX: H60.501 Unspecified acute noninfective otitis externa, right ear (principal); E11.9 Type 2 diabetes mellitus without complications; Z79.84 Long term (current) use of oral hypoglycemic drugs
CPT/HCPCS: 99283

== ENCOUNTER 2024-11-10 14:39 | Emergency (ER) | payer SELFPAY ==
--- NOTE | ~2024-11-10 | CT_ITS ---
History: Headache and dizziness PROCEDURE: CT head without contrast. COMPARISON: 07/25/2019 TECHNIQUE: Axial imaging of the head performed from the skull base to the vertex without IV contrast. Sagittal a nd coronal reformations obtained. DLP: 605 mGy-cm FINDINGS: The ventricles are normal in size, shape and position. There is no mass, mass effect or midline shift. There is no abnormal extra-axial fluid collection or intracranial hemorrhage. Mucoperiosteal thickening within the left maxillary sinus. Retention cyst within the right maxillary sinus. Remaining paranasal sinuses are unremarkable The mastoid air cells are well aerated. No acute displaced fractures within the overlying cranium. Impression: No acute intracranial hemorrhage or suspicious mass effect. Inflammatory sinus disease. Reviewed, dictated and finalized at location A. [employer] Impression: No acute intracranial hemorrhage or suspicious mass effect. Inflammatory sinus disease.
--- NOTE | ~2024-11-10 | XR_ITS ---
CHEST RADIOGRAPH, PA AND LATERAL CLINICAL HISTORY: dizziness . COMPARISON: 07/11/2022 TECHNIQUE: PA and lateral views of the chest. FINDINGS The cardiomediastinal silhouette is unremarkable. The lungs are clear. Visualized osseous structures and soft tissues are unremarkable. IMPRESSION: No focal infiltrate or effusion. Reviewed, dictated and finalized at location A. [facility] TE[facility]
--- OUTSIDE RECORDS SUMMARY | 2024-11-10 14:43 | XMS_ITS | Referral Summary ---
Author Organization [facility] Address [address] [place] [address] Care Team Providers Care Client Service Executive Name Role Phone Unknown, Provider Primary Care Provider Unavaila ble Source Comments [facility],non-owned Affiliates and Associated Physician Practices is amultiple site organization consisting of ambulatory clinics and hospital sitesin [place], [place], [place] and [place]. This disclosure is being madepursuant to the Care Everywhere program and may not contain all information available regarding this patient. Last updated 18.[facility] [employer] Allergies No known active allergies Medications Be aware that medications may not be up to date on this document. Always verify current medications with the patient. No known medications Social History Tobacco Use Types Packs/Day Years Used Date Smoking Tobacco: Every Day Cigarettes 1 4.9 Started: 01/04/2020 Smokeless Tobacco: Never Sex and Gender Information Value Date Recorded Sex Assigned at Not on file Gender Identity Female 05/05/2020 3:53 PM CDT Sexual Orientation Not on file Last Filed Vital Signs Vital Sign Reading Time Taken Comments Blood Pressure - - Pulse 108 07/29/2020 10:38 AM CDT Temperature 36.7 ??C (98.1 ??F) 07/29/2020 10:38 AM C DT Respiratory Rate 16 07/29/2020 10:38 AM CDT Oxygen Saturation 97% 07/29/2020 10:38 AM CDT Inhaled Oxygen Concentration - - Weight 80.3 kg (177 lb) 07/29/2020 10:38 AM CDT Height 152.4 cm (5') 07/29/2020 10:38 AM CDT Body Mass Index 34.57 07/29/2020 10:38 AM CDT Plan of Treatment Not on file Procedures Procedure Name Priority Date/Time Associated Diagnosis Comments GLUCOSE - POINT OF CARE (AMB) STL Routine 07/29/2020 11:27 AM CDT Type 2 diabetes mellitus with hyperglycemia, unspecified whether 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 insulin 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
--- OUTSIDE RECORDS SUMMARY | 2024-11-10 14:43 | XMS_ITS | Patient Health Summary ---
Author Organization [facility] Address [address] [place] [address] Care Team Providers Care Client Reporting Associate Name Role Phone Unknown, Provider Primary Care Provider Unavaila ble Note from [facility],non-owned Affiliates and Associated Physician Practices is amultiple site organization consisting of ambulatory clinics and hospital sitesin [place], [place], [place] and [place]. This disclosure is being madepursuant to the Care Everywhere program and may not contain all information available regarding this patient. Last updated 18.[facility] [employer] Allergies No known active allergies Medications Be [...] Mass Index 34.57 07/29/2020 10:38 AM CDT Procedures * GLUCOSE - POINT OF CARE (AMB) STL(Performed 07/29/2020) Performed for Type 2 diabetes mellitus with hyperglycemia, unspecified whether jail insulin use (HCC) * CULTURE URINE(Performed 07/29/2020) Performed for Acute cystitis without hematuria * URINALYSIS AUTO - POINT OF CARE (AMB) STL(Performed 07/29/2020) Performed for Acute cystitis without hematuria Results * (ABNORMAL) GLUCOSE - POINT OF CARE (AMB) STL (07/29/2020 11:27 AM CDT) Pathologist [facility] Glucose 480(A) 60 - 100 mg/dL Lot # [id number] Expiration Date 07/30/2020 QC Verified Yes Yes Blood BLOOD SPECIMEN / Unknown 07/29/2020 11:27 AM CDT Sarahy [facility] - PO INT OF CARE ORDERABLES * (ABNORMAL) CULTURE URINE (07/29/2020 11:19 AM CDT) Pathologist [facility] Urine Culture Routine Final report(A) [facility] INSURANCE BILL Result 1 (A) [employer] INSURANCE BILL Comment: Beta hemolytic Streptococcus, group B 50,000-100,000 colony forming units per mL Penicillin and ampicillin are drugs of choice for treatment of beta-hemolytic streptococcal infections. Susceptibility testing of penicillins and other beta-lactam agents approved by the FDA for treatment of beta-hemolytic streptococcal infections need not be performed routinely because nonsusceptible isolates are extremely rare in any beta-hemolytic streptococcus and have not been reported for Streptococcus pyogenes (group A). (CLSI) Urine URINE SPECIMEN OBTAINED BY CLEAN CATCH PROCEDURE / Unknown 07/29/2020 11:19 AM CDT 07/29/2020 Narrative Resulting Agency Comment Lab Testing performed at: [facility] [address] ??[facility] [id number] Sarahy [facility] - [place] CROBIOLOGY ORDERABLES [facility] INSURANCE BILL [address] [place] [address] * URINALYSIS AUTO - POINT OF CARE (AMB) STL (07/29/2020 11:08 AM CDT) Clarity UA POCT clear Color UA POCT yellow Leukocyte UA - Negative Nitrite UA POCT - Negative Urobilinogen UA 0.2 0.1 - 1.0 Protein UA POCT 15 Negative pH UA 5.0 5.0 - 8.0 pH units Blood UA - Negative Specific [place] UA POCT 1.030 1.002 - 1.030 Ketone UA 5 Negative Bilirubin UA POCT 1 Negative Glucose UA >2000++++ Negative Expiration Date 08/20/2021 Lot # [id number] QC Verified Yes Yes Urine URINE / Unknown 07/29/2020 1 1:08 AM CDT Sarahy Lynn GIN FEEDER-TUMBLING MACHINE OPERATOR LAB - PO INT OF CARE ORDERABLES Care Teams Client Reporting Associate Relationship Specialty Start Date End Date Unknown, Provider PCP - General 05/05/20
--- OUTSIDE RECORDS SUMMARY | 2024-11-10 14:43 | XMS_ITS | Clinical Summary ---
Author Organization [facility] Address [address] [place] [address] Care Team Providers Care Bending Shed Worker Name Role Phone Unknown, Provider Primary Care Provider Unavaila ble Source Comments [facility],non-owned Affiliates and Associated Physician Practices is amultiple site organization consisting of ambulatory clinics and hospital sitesin [place], [place], [place] and [place]. This disclosure is being madepursuant to the Care Everywhere program and may not contain all information available regarding this patient. Last updated 18.[facility] [employer] Allergies No known active allergies Medications Be [...] 07/29/2020 10:38 AM CDT Plan of Treatment Health Maintenance Due Date Last Done Comments CELESTE (AGES 45-75) - COL ON CA SCREENING 1974 COLON MONITORING 1974 COLONOSCOPY - COLON CA SCREENING 1974 CT COLONOGRAPHY - COLON CA SCREENING 1974 Colorectal Cancer Screening 1974 FIT - COLON CA SCREENING 1974 FLEX SIG - COLON CA SCREENING 1974 LIPID TESTING 1974 MAMMOGRAM 1974 PAP SMEAR 1974 HIV SCREENING 1989 HEPATITIS C SCREENING 05/10/1992 DTAP/TDAP/TD VACCINES (1 - Tdap) 1993 HEPATITIS B VACCINE (1 of 3 - 19+ 3-dose series) 1993 PNEUMOCOCCAL VACCINE 50+ (1 of 2 - PCV) 1993 PNEUMOCOCCAL VACCINE (1 of 2 - PCV) 1993 SCREENING FOR DIABETES 07/29/2023 07/29/2020 ZOSTER VACCINE (1 of 2) 2024 COVID-19 VACCINE (1 - 2023-2 5 season) 2024 INFLUENZA VACCINE (#1) 2024 DEPRESSION SCREENING 10/07/2024 HIB VACCINE Aged Out No longer eligi ble based on patient's age to complete this topic HPV VACCINE Aged Out No longer eligi ble based on patient's age to complete this topic MENINGOCOCCAL (Group B) VACCINE Aged Out No longer eligible based on patient's age to complete this topic MENINGOCOCCAL VACCINE Aged Out No pretty lamar eligible based on patient's age to complete this topic Procedures Procedure Name Priority Date/Time Associated Diagnosis Comments GLUCOSE - POINT OF CARE (AMB) STL Routine 07/29/2020 11:27 AM CDT Type 2 diabetes mellitus with hyperglycemia, unspecified whether mcc insulin use (HCC) from Last 3 Months or Most Recently Relevant to Health Maintenance Results * (ABNORMAL) GLUCOSE - POINT OF CARE (AMB) STL (07/29/2020 11:27 AM CDT) Glucose 480(A) 60 - 100 mg/dL Lot # [id number] Expiration Date 07/30/2020 QC Verified Yes Yes Blood BLOOD SPECIMEN / Unknown 07/29/2020 11:27 AM CDT Sarahy Lynn SHOOTER HELPER-MANAGER FILE LAB - PO INT OF CARE ORDERABLES from Last 3 Months or Most Recently Relevant to Health Maintenance Care Teams Bending Shed Worker Relationship Specialty Start Date End Date Unknown, Provider PCP - General 05/05/20
--- OUTSIDE RECORDS SUMMARY | 2024-11-10 14:43 | XMS_ITS | CONTINUITY OF CARE DOCUMENT ---
Author Name fidelinadavidissa Address Unknown Organization [facility] Address [address] [place] [address] [address] [place] [address] Phone [phone] Care Team Providers Care [employer] Auto Repair Teacher Name Role Phone Johny KWAN, Ziada Unavailable Zaida Mcclain MD Unavailable [phone] INSURANCE PROVIDERS Payer name Policy type / Coverage type [place] red green party ID [place] (2) Medicaid [id number]
--- NOTE | 2024-11-10 14:44 | PC.NURSE ---
Denies any CP/SHOB, headache, speech clear, able to move all extremities. Sample Case Porter equal-gait steady
--- OUTSIDE RECORDS SUMMARY | 2024-11-10 17:26 | XMS_ITS | Referral Summary ---
Author Organization [facility] Address [address] [place] [address] Care Team Providers Care River Guide Name Role Phone Unknown, Provider Primary Care Provider Unavaila ble Source Comments [facility],non-owned Affiliates and Associated Physician Practices is amultiple site organization consisting of ambulatory clinics and hospital sitesin [place], [place], [place] and [place]. This disclosure is being madepursuant to the Care Everywhere program and may not contain all information available regarding this patient. Last updated 18.[facility] [employer] Allergies No known active allergies Medications Be [...] 2 diabetes mellitus with hyperglycemia, unspecified whether long term care phlebotomist insulin use (HCC) from Last 3 Months or Most Recently Relevant to Health Maintenance Results * (ABNORMAL) GLUCOSE - POINT OF CARE (AMB) STL (07/29/2020 11:27 AM CDT) Glucose 480(A) 60 - 100 mg/dL Lot # [id number] Expiration Date 07/30/2020 QC Verified Yes Yes Blood BLOOD SPECIMEN / Unknown 07/29/2020 11:27 AM CDT Sarahy Lynn CLINICAL STATISTICS MANAGER-SOIL FERTILITY EXTENSION SPECIALIST LAB - PO INT OF CARE ORDERABLES from Last 3 Months or Most Recently Relevant to Health Maintenance Care Teams River Guide Relationship Specialty Start Date End Date Unknown, Provider PCP - General 05/05/20
--- OUTSIDE RECORDS SUMMARY | 2024-11-10 17:26 | XMS_ITS | Clinical Summary ---
Author Organization [facility] Address [address] [place] [address] Care Team Providers Care Continuous Dryout Operator Name Role Phone Unknown, Provider Primary Care Provider Unavaila ble Source Comments [facility],non-owned Affiliates and Associated Physician Practices is amultiple site organization consisting of ambulatory clinics and hospital sitesin [place], [place], [place] and [place]. This disclosure is being madepursuant to the Care Everywhere program and may not contain all information available regarding this patient. Last updated 18.[facility] [employer] Allergies No known active allergies Medications Be [...] 2 diabetes mellitus with hyperglycemia, unspecified whether snf insulin use (HCC) from Last 3 Months or Most Recently Relevant to Health Maintenance Results * (ABNORMAL) GLUCOSE - POINT OF CARE (AMB) STL (07/29/2020 11:27 AM CDT) Glucose 480(A) 60 - 100 mg/dL Lot # [id number] Expiration Date 07/30/2020 QC Verified Yes Yes Blood BLOOD SPECIMEN / Unknown 07/29/2020 11:27 AM CDT Sarahy Lynn DIRECTOR HAIR-APPLICATION DEVELOPER LAB - PO INT OF CARE ORDERABLES from Last 3 Months or Most Recently Relevant to Health Maintenance Care Teams Continuous Dryout Operator Relationship Specialty Start Date End Date Unknown, Provider PCP - General 05/05/20
--- OUTSIDE RECORDS SUMMARY | 2024-11-10 17:26 | XMS_ITS | Patient Health Summary ---
Author Organization [facility] [employer] Address [address] [address] [place] [address] Care Team Providers Care Operations Dispatcher Name Role Phone Unknown, Provider Primary Care Provider Unavaila ble Note from [facility],non-owned Affiliates and Associated Physician Practices is amultiple site organization consisting of ambulatory clinics and hospital sitesin [place], [place], [place] and [place]. This disclosure is being madepursuant to the Care Everywhere program and may not contain all information available regarding this patient. Last updated 18.[facility] [employer] Allergies No known active allergies Medications Be [...] 2 diabetes mellitus with hyperglycemia, unspecified whether fpc insulin use (HCC) * CULTURE URINE(Performed 07/29/2020) Performed for Acute cystitis without hematuria * URINALYSIS AUTO - POINT OF CARE (AMB) STL(Performed 07/29/2020) Performed for Acute cystitis without hematuria Results * (ABNORMAL) GLUCOSE - POINT OF CARE (AMB) STL (07/29/2020 11:27 AM CDT) Pathologist [facility] Glucose 480(A) 60 - 100 mg/dL Lot # [id number] Expiration Date 07/30/2020 QC Verified Yes Yes Blood BLOOD SPECIMEN / Unknown 07/29/2020 11:27 AM CDT Sarahy [facility] - PO INT OF CARE ORDERABLES * (ABNORMAL) CULTURE URINE (07/29/2020 11:19 AM CDT) Pathologist [facility] Urine Culture Routine Final report(A) [facility] INSURANCE BILL Result 1 (A) [employer] INSURANCE BILL Comment: Beta hemolytic Streptococcus, group [...] Resulting Agency Comment Lab [facility] performed at: [facility] [address] ??[facility] [phone] Sarahy [facility] - [place] CROBIOLOGY ORDERABLES [facility] INSURANCE BILL [address] [place] [address] * URINALYSIS AUTO - POINT OF CARE (AMB) STL (07/29/2020 11:08 AM CDT) Clarity UA POCT clear Color UA POCT yellow Leukocyte UA - Negative Nitrite UA POCT - Negative Urobilinogen UA 0.2 0.1 - 1.0 Protein UA POCT 15 Negative pH UA 5.0 5.0 - 8.0 pH units Blood UA - Negative Specific [place] UA POCT 1.030 1.002 - 1.030 Ketone UA 5 Negative Bilirubin UA POCT 1 Negative Glucose UA >2000++++ Negative Expiration Date 08/20/2021 Lot # [id number] Verified Yes Yes Urine URINE / Unknown 07/29/2020 1 1:08 AM CDT Sarahy Lynn AUTOMATIC TRIMMING SEWER-SENIOR ARCHITECT/DESIGN MANAGER LAB - PO INT OF CARE ORDERABLES Care Teams Operations Dispatcher Relationship Specialty Start Date End Date Unknown, Provider PCP - General 05/05/20
--- OUTSIDE RECORDS SUMMARY | 2024-11-10 17:26 | XMS_ITS | CONTINUITY OF CARE DOCUMENT ---
Author Name fidelinadavidissa Address Unknown Organization [facility] Address [address] [place] [address] [address] [place] [address] Phone [phone] Care Team Providers Care Genetic Counselor Name Role Phone Johny KWAN, Zaida Unavailable [phone] Zaida Mcclain MD Unavailable INSURANCE PROVIDERS Payer name Policy type / Coverage type [place] red alliance party [place] (2) Medicaid [id number]
[2024-11-10 18:17] VITALS: BP 130/74; PULSE 73; RESP 16; TEMP 36.5; O2SAT 100
--- NOTE | 2024-11-10 18:18 | ED_ITS ---
HPI - Dizziness General Chief Complaint: Dizziness <ELSA Quijano Last Filed: 11/10/24 18:26> Stated Complaint: Dizziness-feeling off -drove in <ELSA Quijano Last Filed: 11/10/24 18:26> Time Seen by Provider: 11/10/24 18:18 <ELSA Quijano Last Filed: 11/10/24 18:26> Focused HPI: Patient is a 49 y/o female who presents to the ED with c/o dizziness. Patient reports she was at home this afternoon she suddenly began feeling dizzy around 2:30 p.m.. Described as feeling lightheaded more so than the room is spinning. Denies ever having similar symptoms like this before. Also reports having a mild headache, bilaterally blurry vision, and feeling as though there is extra light beaming into her eyes. Denies eye pain. She reports heaviness in both legs. Denies focal numbness or weakness. Denies syncope. States she has been eating and drinking normally. States she was diagnosed with pneumonia last week. Denies CP/SOB. GENERAL: Well-appearing, obese with BMI of 32.4, and in no acute distress. HEAD: Normocephalic, atraumatic. CHEST: Clear to auscultation. ?No respiratory distress. HEART: Regular rate and rhythm.? NEURO: ?Alert and oriented x3. No focal deficits. Steady gait. Speech clear. Patient screened in triage and initial orders placed.? ?Additional care and disposition to be based upon?diagnostic testing and treatment. <ELSA Quijano Last Filed: 11/10/24 18:26> Source: patient <ELSA Quijano Last Filed: 11/10/24 18:26> Mode of arrival: ambulatory <ELSA Quijano Last Filed: 11/10/24 18:26> Limitations: no limitations <ELSA Quijano Last Filed: 11/10/24 18:26> History of Present Illness HPI Narrative: I agree with the HPI as described above. The patient has no other complaints at this time <Femi Alvarez MD - Last Filed: 11/10/24 22:21> Related Data Allergies/Adverse Reactions: Allergies Allergy/AdvReac Type Severity Reaction Status Date / Time No Known Allergies Allergy Verified 11/10/24 14:41 <Meri Deleon PA-C - Last Filed: 11/10/24 18:26> Review of Systems 2 Review of Systems: All systems reviewed & are unremarkable except as noted in HPI and below <Femi Alvarez MD - Last Filed: 11/10/24 22:21> PMFSH Past Medical History Medical History: Medical History Diabetes <Meri Deleon PA-C - Last Filed: 11/10/24 18:26> Surgical History Surgical History: Surgical History History of section <Meri Deleon PA-C - Last Filed: 11/10/24 18:26> Social History Social History: Social History Gender identity (if verbalized by the patient): Female <Meri Deleon PA-C - Last Filed: 11/10/24 18:26> Exam 2 Narrative: GENERAL: Well-developed, well-nourished, and in no acute distress. HEAD: Normocephalic, atraumatic. EYES: PERRLA and EOMI. CHEST: Clear to auscultation. No respiratory distress. No wheezes rales or rhonchi HEART: Regular rate and rhythm. No murmur heard. Normal peripheral pulses. ABDOMEN: Soft, nontender, nondistended, normal active bowel sounds. EXTREMITIES: Normal range of motion. No edema. SKIN: Warm, dry, no rash. NEURO: Alert and oriented x3. No focal deficit. Moving all 4 limbs spontaneously PSYCH: Normal mood and affect. <Femi Alvarez MD - Last Filed: 11/10/24 22:21> Course Course Emergency Course: 20:19 - CBC demonstrates mildly elevated white blood cell count of 10.6 but is otherwise unremarkable. Chemistries demonstrate hyperglycemia with glucose of 254 but is otherwise unremarkable. Chest x-ray not concerning for acute cardiopulmonary process. CT head not concerning for intracranial hemorrhage or mass. Coags within normal limits. Orthostatic vital signs demonstrated a decrease in systolic pressure with standing no reflex tachycardia. 20:54 - EKG not concerning for arrhythmia or ischemia. I suspect the patient's lightheadedness is related to dehydration and hyperglycemia. Will give IV fluids and discharge with recommendation for primary care follow-up. I discussed the findings and recommendations with The patient. Discussed return and emergency precautions including signs/symptoms of persistent vomiting, ACS and respiratory distress. The patient voiced understanding and agreement with the plan. All questions answered to her satisfaction. <Femi Alvarez MD - Last Filed: 11/10/24 22:21> Vital Signs Vital signs: Vital Signs Temperature 97.7 F 11/10/24 18:17 Pulse Rate 73 11/10/24 18:17 Respiratory Rate 16 11/10/24 18:17 Blood Pressure 130/74 11/10/24 18:17 Pulse Oximetry 100 11/10/24 18:17 Oxygen Delivery Room Air 11/10/24 18:17 Temperature 97.7 F 11/10/24 18:17 Pulse Rate 77 11/10/24 22:18 Respiratory Rate 15 11/10/24 22:18 Blood Pressure 104/60 11/10/24 22:18 Pulse Oximetry 100 11/10/24 22:18 Oxygen Delivery Room Air 11/10/24 18:17 <Meri Deleon PA-C - Last Filed: 11/10/24 18:26> Vital Signs Temperature 97.7 F 11/10/24 18:17 Pulse Rate 73 11/10/24 18:17 Respiratory Rate 16 11/10/24 18:17 Blood Pressure 130/74 11/10/24 18:17 Pulse Oximetry 100 11/10/24 18:17 Oxygen Delivery Room Air 11/10/24 18:17 Temperature 97.7 F 11/10/24 18:17 Pulse Rate 77 11/10/24 22:18 Respiratory Rate 15 11/10/24 22:18 Blood Pressure 104/60 11/10/24 22:18 Pulse Oximetry 100 11/10/24 22:18 Oxygen Delivery Room Air 11/10/24 18:17 <Femi Alvarez MD - Last Filed: 11/10/24 22:21> MDM - Dizziness MDM Narrative Medical decision making narrative: MSE by MARY in triage. <Meri Deleon PA-C - Last Filed: 11/10/24 18:26> MSE by MARY in triage. plan: Labs, EKG, orthostatic vital signs, imaging, IV fluids, reassess <Femi Alvarez MD - Last Filed: 11/10/24 22:21> Differential Diagnosis Differential diagnosis: Likely orthostatic hypotension and other ( near syncope, hypoglycemia, pneumonia, pneumothorax, arrhythmia, metabolic abnormality, other) <Femi Alvarez MD - Last Filed: 11/10/24 22:21> Lab Data Result diagrams: 11/10/24 19:27 11/10/24 19:27 <Meri Deleon PA-C - Last Filed: 11/10/24 18:26> Labs: Lab Results 11/10/24 11/10/24 Range/Units 19:27 19:39 WBC 10.6 H (4.5-10.0) K/mm3 RBC 5.07 (4.2-5.4) M/mm3 Hgb 14.6 (12.0-15.0) g/dL Hct 43.1 (37.0-47.0) % MCV 85.0 (80-100) fl MCH 28.8 (26-34) pg MCHC 33.9 (32-36) g/dl RDW 12.5 (11.5-14.5) % Plt Count 268 (150-375) k/mm3 MPV 10.8 H (7.4-10.4) fl Immature Gran % (Auto) 0.5 (0-0.5) % Neut % (Auto) 53.3 (45.5-73.1) % Lymph % (Auto) 34.9 (18.3-44.2) % [place] % (Auto) 6.2 (2.6-8.5) % Eos % (Auto) 4.4 (0-4.4) % Baso % (Auto) 0.7 (0.2-1.2) % Lymph # (Auto) 3.71 H (0.9-3.2) K/mm3 [place] # (Auto) 0.7 H (0.1-0.6) K/mm3 Eos # (Auto) 0.5 H (0-0.3) K/mm3 Baso # (Auto) 0.1 (0.0-0.1) K/mm3 Abs Immat Gran (auto) 0.05 H (0.00-0.031) K/mm3 Absolute Neuts (auto) 5.7 (1.3-6.7) K/mm3 Absolute Nucleated RBC 0.000 (0.0-0.012) K/mm3 Nucleated RBC % 0.0 (0.0-0.2) % PT 13.4 (11.1-14.7) Seconds INR 1.0 APTT 25.5 (22.3-36.8) Seconds Sodium 134 L (137-145) mmol/L Potassium 4.1 (3.4-5.0) mmol/L Chloride 98 (98-107) mmol/L Carbon Dioxide 27 (22-30) mmol/L Anion Gap 9 (4-12) mmol/L BUN 11 D (7-17) mg/dL Creatinine 0.35 L (0.7-1.0) mg/dL Estim Creat Clear Calc Not Reportable Estimated GFR > 60 (59 - ) Glucose 254 H (65-110) mg/dL POC Capillary Glucose 255 H (65-105) mg/dl Calcium 9.5 (8.4-10.2) mg/dL Total Bilirubin 0.8 (0.2-1.3) mg/dL AST 16 (14-36) U/L ALT 16 (6-35) U/L Alkaline Phosphatase 154 H (38-126) U/L Total Protein 8.0 (6.3-8.2) g/dL Albumin 4.2 (3.5-5.1) g/dL <Meri Deleon PA-C - Last Filed: 11/10/24 18:26> Lab Results 11/10/24 11/10/24 Range/Units 19:27 19:39 WBC 10.6 H (4.5-10.0) K/mm3 RBC 5.07 (4.2-5.4) M/mm3 Hgb 14.6 (12.0-15.0) g/dL Hct 43.1 (37.0-47.0) % MCV 85.0 (80-100) fl MCH 28.8 (26-34) pg MCHC 33.9 (32-36) g/dl RDW 12.5 (11.5-14.5) % Plt Count 268 (150-375) k/mm3 MPV 10.8 H (7.4-10.4) fl Immature Gran % (Auto) 0.5 (0-0.5) % Neut % (Auto) 53.3 (45.5-73.1) % Lymph % (Auto) 34.9 (18.3-44.2) % [place] % (Auto) 6.2 (2.6-8.5) % Eos % (Auto) 4.4 (0-4.4) % Baso % (Auto) 0.7 (0.2-1.2) % Lymph # (Auto) 3.71 H (0.9-3.2) K/mm3 [place] # (Auto) 0.7 H (0.1-0.6) K/mm3 Eos # (Auto) 0.5 H (0-0.3) K/mm3 Baso # (Auto) 0.1 (0.0-0.1) K/mm3 Abs Immat Gran (auto) 0.05 H (0.00-0.031) K/mm3 Absolute Neuts (auto) 5.7 (1.3-6.7) K/mm3 Absolute Nucleated RBC 0.000 (0.0-0.012) K/mm3 Nucleated RBC % 0.0 (0.0-0.2) % PT 13.4 (11.1-14.7) Seconds INR 1.0 APTT 25.5 (22.3-36.8) Seconds Sodium 134 L (137-145) mmol/L Potassium 4.1 (3.4-5.0) mmol/L Chloride 98 (98-107) mmol/L Carbon Dioxide 27 (22-30) mmol/L Anion Gap 9 (4-12) mmol/L BUN 11 D (7-17) mg/dL Creatinine 0.35 L (0.7-1.0) mg/dL Estim Creat Clear Calc Not Reportable Estimated GFR > 60 (59 - ) Glucose 254 H (65-110) mg/dL POC Capillary Glucose 255 H (65-105) mg/dl Calcium 9.5 (8.4-10.2) mg/dL Total Bilirubin 0.8 (0.2-1.3) mg/dL AST 16 (14-36) U/L ALT 16 (6-35) U/L Alkaline Phosphatase 154 H (38-126) U/L Total Protein 8.0 (6.3-8.2) g/dL Albumin 4.2 (3.5-5.1) g/dL <Femi Alvarez MD - Last Filed: 11/10/24 22:21> ECG Data EKG #1: Attestation: I personally reviewed and interpreted this ECG as follows: <Femi Alvarez MD - Last Filed: 11/10/24 22:21> ECG completion date: 12/09/24 <Femi Alvarez MD - Last Filed: 11/10/24 22:21> ECG completion time: 20:31 <Femi Alvarez MD - Last Filed: 11/10/24 22:21> Prior ECG tracings: not available for review <Femi Alvarez MD - Last Filed: 11/10/24 22:21> Interpretation: Sinus rhythm with 1 PVC, rate 77, normal axis, no segment elevations or T-wave inversions concerning for ischemia, normal intervals with QTC of 431. <Femi Alvarez MD - Last Filed: 11/10/24 22:21> Discharge Plan Discharge Clinical Impression: Lightheadedness, Hyperglycemia due to diabetes mellitus, Dehydration <Meri Deleon PA-C - Last Filed: 11/10/24 18:26> Patient Disposition: Home, Self-Care <Meri Deleon PA-C - Last Filed: 11/10/24 18:26> Condition: Stable <Meri Deleon PA-C - Last Filed: 11/10/24 18:26> Instructions: Antibiotic Form, Lightheadedness (ED) <Meri Deleon PA-C - Last Filed: 11/10/24 18:26> Additional Instructions: You were seen in the emergency department. your EKG was not concerning for abnormal heart rhythm. Your blood glucose was elevated. I suspect your symptoms are related to dehydration. Your given IV fluids. I recommend following up with a primary care doctor to get your diabetes under control. If you develop chest pain, shortness of breath, loss of consciousness, or if you have other emergent concerns for life, limb, or eyesight, return to the emergency department. <Meri Deleon PA-C - Last Filed: 11/10/24 18:26> Patient Language: Maori <Meri Deleon PA-C - Last Filed: 11/10/24 18:26> Prescriptions: New metformin 500 mg tablet 500 mg PO BID Qty: 60 0RF No Action metformin 500 mg tablet 500 mg PO BID Qty: 60 0RF Rx Instructions: For the first week take 1 tablet daily then progressed to 1 tablet twice daily fluconazole [Diflucan] 150 mg tablet 150 mg PO Q72H Qty: 2 0RF Rx Instructions: as a single dose may repeat dose in 72 hours if symptoms have not improved sulfamethoxazole-trimethoprim [Bactrim DS] 800-160 mg tablet 1 tablet PO Q12H Qty: 14 0RF fluconazole [Diflucan] 150 mg tablet 150 mg PO ONCE Qty: 1 0RF Rx Instructions: as a single dose benzonatate 200 mg capsule 200 mg PO BID PRN (Reason: cough) Qty: 30 0RF ofloxacin 0.3 % drops 10 drp RIGHT EAR DAILY 7 Days Qty: 5 0RF permethrin [Elimite] 5 % cream 1 applic topical Q14D Qty: 60 0RF Rx Instructions: apply second treatment 14 days after first treatment if live lice remain fluconazole 150 mg tablet 150 mg PO DAILY Qty: 1 0RF Rx Instructions: administer on day 1 of therapy <Meri Deleon PA-C - Last Filed: 11/10/24 18:26> Follow-up/Referrals: PHYSICIAN,HYDROELECTRIC PRODUCTION MANAGER [Primary Care Provider] - Delfina Lucas DO [Physician] - 1 Week <ELSA Quijano Last Filed: 11/10/24 18:26>
--- NOTE | 2024-11-10 18:21 | ECG_ITS ---
Test Date: 2024-11-10 20:31:26 Measurements Intervals [place] Rate: 77 P: -11 WA: 161 QRS: 13 QRSD: 86 T: 33 QT: 399 QTc: 452 Interpretive Statements SINUS RHYTHM WITH OCCASIONAL VENTRICULAR PREMATURE COMPLEXES BORDERLINE ECG No previous ECG available for comparison Electronically Signed On 11-11-2024 07:03:29 [employer] DEVULCAN[employer]ER HELPER by Don Pabon D.O.
[2024-11-10] MEDS: ACETAMINOPHEN 500 MG TABLET 1000 MG PO (19:20)
[2024-11-10] MEDS: MECLIZINE HCL 25 MG TABLET PO (19:20)
[2024-11-10] MEDS: SODIUM CHLORIDE 0.9% IV 1,000 ML 999 ML IV CONT ×2 (19:26→20:35)
[2024-11-10 19:36] LABS: Basophils Absolute Auto 0.1 K/mm3 (0.0-0.1); Basophils Percent Auto 0.7 % (0.2-1.2); Eosinophils Absolute Auto 0.5 K/mm3 (0-0.3); Eosinophils Percent Auto 4.4 % (0-4.4); Hematocrit 43.1 % (37.0-47.0); Hemoglobin 14.6 g/dL (12.0-15.0); Immature Granulocyte Absolute 0.05 K/mm3 (0.00-0.031); Immature Granulocyte Percent A 0.5 % (0-0.5); Lymphocytes Absolute Auto 3.71 K/mm3 (0.9-3.2); Lymphocytes Percent Auto 34.9 % (18.3-44.2); Mean Corpuscular HGB Conc 33.9 g/dl (32-36); Mean Corpuscular Hemoglobin 28.8 pg (26-34); Mean Platelet Volume 10.8 fl (7.4-10.4); Monocytes Absolute Auto 0.7 K/mm3 (0.1-0.6); Monocytes Percent Auto 6.2 % (2.6-8.5); Neutrophils Absolute Auto 5.7 K/mm3 (1.3-6.7); Neutrophils Percent Auto 53.3 % (45.5-73.1); Platelet Count Result 268 k/mm3 (150-375); Red Blood Count 5.07 M/mm3 (4.2-5.4); Red Cell Distribution Width 12.5 % (11.5-14.5); White Blood Count 10.6 K/mm3 (4.5-10.0)
[2024-11-10 19:40] VITALS: BP 108/72; BP 128/76; PULSE 81; PULSE 86
[2024-11-10 19:42] VITALS: BP 104/82; PULSE 91
[2024-11-10 19:42] LABS: Glucose Point of Care 255 mg/dl (65-105)
[2024-11-10 19:47] LABS: Alanine Aminotransferase 16 U/L (6-35); Albumin Level 4.2 g/dL (3.5-5.1); Alkaline Phosphatase 154 U/L (38-126); Anion Gap 9 mmol/L (4-12); Aspartate Amino Transferase 16 U/L (14-36); Bilirubin,Total 0.8 mg/dL (0.2-1.3); Blood Urea Nitrogen 11 mg/dL (7-17); Calcium 9.5 mg/dL (8.4-10.2); Carbon Dioxide 27 mmol/L (22-30); Chloride 98 mmol/L (98-107); Estimated Glomerular Filt Rate > 60; Glucose 254 mg/dL (65-110); Potassium 4.1 mmol/L (3.4-5.0); Sodium 134 mmol/L (137-145)
[2024-11-10 20:07] LABS: Partial Thromboplastin Time 25.5 Seconds (22.3-36.8); Prothrombin Time 13.4 Seconds (11.1-14.7)
[2024-11-10] MEDS: LACTATED RINGERS 1,000 ML 999 ML IV CONT (22:17)
[2024-11-10 22:18] VITALS: BP 104/60; PULSE 77; RESP 15; O2SAT 100
[2024-11-10 23:46] VITALS: BP 108/62; PULSE 71; RESP 15; O2SAT 100
== END 2024-11-10 23:47 | disposition home or self-care (01) ==
PROVIDERS: Physician Assistant; Emergency Provider Preventive Medicine Aerospace Medicine
DX: R42 Dizziness and giddiness (principal); E11.65 Type 2 diabetes mellitus with hyperglycemia; E86.0 Dehydration
CPT/HCPCS: 36415; 70450; 71046; 80053; 82948; 85025; 85610; 85730; 93005; 96360; 96361; 99284; A9270; J7030; J7120

== ENCOUNTER 2025-09-07 16:05 | Emergency (ER) | payer OTHER, SELFPAY ==
--- NOTE | ~2025-09-07 | CT_ITS ---
EXAMINATION: CT brain wo con DATE: 09/07/2025 17:42 INDICATION: Fall TECHNIQUE: Computed tomography (CT) of the head was performed without intravenous contrast. Sagittal and coronal reconstructions were performed. The mA was adjusted according to patient size. Iterative reconstruction technique was employed. The dose-length product was 605.33 mGy-cm. COMPARISON: head CT dated 11/10/24 FINDINGS: No fracture. No acute intracranial hemorrhage, acute infarction or abnormal extra axial fluid collection. Ventricles are normal and symmetric. No mass/mass effect. Apical thickening in the bilateral ethmoid, maxillary and sphenoid sinuses with small amount of posterior layering fluid in the right maxillary and sphenoid sinuses. The orbits and mastoid air cells are normal. IMPRESSION: 1. No fracture or acute intracranial process. 2. Equivocal thickening throughout the paranasal sinuses with small amount of fluid layering in the right maxillary and right sphenoid sinuses which could be seen with acute sinusitis. Reviewed, dictated and finalized at location A. E SUPERVISOR IMPRESSION: 1. No fracture or acute intracranial process. 2. Equivocal thickening throughout the paranasal sinuses with small amount of f luid layering in the right maxillary and right sphenoid sinuses which could be seen with acute sinusitis.
--- NOTE | ~2025-09-07 | CT_ITS ---
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 Technique: Axial images were obtained of the spine per protocol. One or more of the following dose reduction techniques were used: automated exposure control, adjustment of the mA and/or kV according to patient size, use of iterative reconstruction technique. Unless otherwise stated, incidental findings do not require dedicated follow up imaging Findings: The vertebral heights are intact. No fracture or subluxation. Minimal loss of disc height at T7-8, T8-9 and T9-T10 with anterior osteophyte formation, there is no severe canal or foraminal stenosis identified. Soft tissues unremarkable Impression: No acute abnormality. Reviewed, dictated and finalized at location P. GER OF CONSTRUCTION Impression: No acute abnormality.
--- NOTE | ~2025-09-07 | CT_ITS ---
EXAMINATION: CT cervical spine wo con COMPARISON: None HISTORY: fall TECHNIQUE: Axial images were obtained through the spine without IV contrast. Coronal, sagittal reconstruction images were obtained from the axial views. CT scan performed using dose optimization techniques including the following automated exposure control; adjustment of mA and/or kV; use of iterative reconstruction technique. Automatic exposure control was used to reduce radiation dose. Permanent radiation dose record is archived to PACS. FINDINGS: There is a mild dextroconvex scoliosis, no fracture is identified. Grade 1 anterolisthesis of C4 on C5 C5 on C6 and C6 on C7, no fracture is identified. There are scattered subcentimeters lytic lesions possibly small hemangiomas in the absence of prior neoplasm, if there is clinical concern outpatient nuclear medicine bone scan is recommended. Moderate loss of disc height at C6-7 with mild to moderate canal and foraminal stenosis. Soft tissues demonstrate enlarged right paratracheal node 1.2 x 1.1 cm. Impression: No acute abnormality. Reviewed, dictated and finalized at location P. OR GENETIC COUNSELOR Impression: No acute abnormality.
[2025-09-07 16:09] VITALS: BP 130/86; PULSE 90; RESP 16; TEMP 36.6; O2SAT 99
[2025-09-07 16:51] VITALS: BP 132/85; PULSE 89; RESP 20; TEMP 36.9; O2SAT 98
--- OUTSIDE RECORDS SUMMARY | 2025-09-07 17:10 | XMS_ITS | Clinical Summary ---
Author Organization [facility] Address [address] [place] [address] Care Team Providers Care [employer]erglass Roller Name Role Phone Unknown, Provider Primary Care Provider Unavaila ble Source Comments [facility],non-owned Affiliates and Associated Physician Practices is amultiple site organization consisting of ambulatory clinics and hospital sitesin [place], [place], [place] and [place]. This disclosure is being madepursuant to the Care Everywhere program and may not contain all information available regarding this patient. Last updated 18.[facility] Allergies No known active allergies Medications * Be aware that medications may not be up to date on this document. Alwaysverify current medications with the patient. No known medications Social History Tobacco Use Types Packs/Day Years Used Date Smoking Tobacco: Every Day Cigarettes 1 5.7 Started: 01/04/2020 Smokeless Tobacco: Never Comments No Sex and Gender Information Value Date Recorded Sex Assigned at Not on file Legal Sex Female 3:21 PM CDT Gender Identity Female 05/05/2020 3:53 PM CDT Sexual Orientation Not on file Last Filed Vital Signs Vital Sign Reading Time Taken Comments Blood Pressure - - Pulse 108 07/29/2020 10:38 AM CDT Temperature 36.7 C (98.1 F) 07/29/2020 10:38 AM CDT Respiratory Rate 16 07/29/2020 10:38 AM CDT [...] SCREENING 1974 LIPID TESTING 1974 MAMMOGRAM 1974 HIV SCREENING 1989 HEPATITIS C SCREENING 05/10/1992 DTAP/TDAP/TD VACCINES (1 - Tdap) 1993 HEPATITIS B VACCINE (1 of 3 - 19+ 3-dose series) 1993 PAP SMEAR 1995 Cervical Cancer Screening 2004 PAP with HPV 2004 SCREENING FOR DIABETES 07/29/2023 07/29/2020 PNEUMOCOCCAL VACCINE 50+ (1 of 1 - PCV) 2024 ZOSTER VACCINE (1 of 2) 2024 DEPRESSION SCREENING 10/07/2024 COVID-19 VACCINE (1 - 2024-2 6 season) 2025 INFLUENZA VACCINE (#1) 2025 HIB VACCINE Aged Out No longer eligi ble based on patient's age to complete this topic HPV VACCINE Aged Out No longer eligi ble based on patient's age to complete this topic MENINGOCOCCAL (Group B) VACC INE SHARED DECISION-MAKING Aged Out No longer eligibl e based on patient's age to complete this topic MENINGOCOCCAL GROUPS A/C/Y/W VACCINE Aged Out No longer eligible b ased on patient's age to complete this topic Procedures Procedure Name Priority Date/Time Associated Diagnosis Comments GLUCOSE - POINT OF CARE (AMB) STL Routine 07/29/2020 11:27 AM CDT Type 2 diabetes mellitus with hyperglycemia, unspecified 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 insulin use from Last 3 Months or Most Recently Relevant to Health Maintenance Results * (ABNORMAL) GLUCOSE - POINT OF CARE (AMB) STL (07/29/2020 11:27 AM CDT) Glucose 480(A) 60 - 100 mg/dL Lot # [id number] Expiration Date 07/30/2020 QC Verified Yes Yes Blood BLOOD SPECIMEN / Unknown 07/29/2020 11:27 AM CDT Sarahy Lynn 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
--- NOTE | 2025-09-07 19:29 | ED.FALL ---
HPI - Fall General Chief Complaint: Fall Stated Complaint: fall Time Seen by Provider: 09/07/25 16:20 History of Present Illness HPI Narrative: 50-year-old female presenting after a fall at work. Patient reports that she can't move as she is experiencing severe lower back pain as well as a headache stating that she hit her head. Patient denies loss of consciousness, nausea/vomiting, dizziness, vision changes, urine/bowel incontinence/retention, chest pains shortness of breath. She is not on blood thinners. Related Data Allergies Allergy/AdvReac Type Severity Reaction Status Date / Time No Known Allergies Allergy Verified 09/07/25 16:09 Review of Systems Review of Systems: All systems reviewed & are unremarkable except as noted in HPI and below PMFSH Past Medical History Medical History Diabetes Surgical History Surgical History History of section Social History Social History Gender identity (if verbalized by the patient): Female Exam Narrative: GENERAL: No acute distress. HEAD: Normocephalic, atraumatic. EYES: PERRLA and EOMI. ENT: Nares clear, no rhinorrhea or epistaxis. Mucous membranes moist. Oropharynx without tonsillar hypertrophy exudate or other lesions. Bilateral TMs pearly sheehan non-bulging NECK: Supple. No adenopathy or masses. No carotid bruits or JVD CHEST: Clear to auscultation. No respiratory distress. No wheezes rales or rhonchi HEART: Regular rate and rhythm. No murmur heard. Normal peripheral pulses. ABDOMEN: Soft, nontender, nondistended, normal active bowel sounds. BACK: TTP of lumbar spine. EXTREMITIES: Normal range of motion. No edema. SKIN: Warm, dry, no rash. NEURO: No focal deficits. Alert and oriented x3. Strength 5/5 in all extremities and maintains good range of motion. PSYCH: Normal mood and affect Course Vital Signs Vital signs: Vital Signs Temperature 97.9 F 09/07/25 16:09 Pulse Rate 90 09/07/25 16:09 Respiratory Rate 16 09/07/25 16:09 Blood Pressure 130/86 09/07/25 16:09 Pulse Oximetry 99 09/07/25 16:09 Temperature 98.4 F 09/07/25 16:51 Pulse Rate 90 09/07/25 20:19 Respiratory Rate 14 09/07/25 20:19 Blood Pressure 122/75 09/07/25 20:19 Pulse Oximetry 97 09/07/25 20:19 Oxygen Delivery Room Air 09/07/25 16:51 [facility] MDM Narrative Medical decision making narrative: 50-year-old female presenting after a fall at work. Patient reports that she can't move as she is experiencing severe lower back pain as well as a headache stating that she hit her head. Patient denies loss of consciousness, nausea/vomiting, dizziness, vision changes, urine/bowel incontinence/retention, chest pains shortness of breath. She is not on blood thinners. Upon my initial assessment patient has stable vitals and is in a C-collar. Imaging demonstrates no acute abnormalities although brain CT notes right sided sinus fluid. Patient does not report any recent illness, cough/congestion, or any other signs consistent with a sinus infection. C-collar was removed. Neuro exam intact. Administered [place] and Flexeril which improved patient's symptoms. Patient ambulated well with nursing staff. Will plan to send home with Flexeril and a short term pain regimen. Differential diagnosis and treatment plan were discussed with the patient. Patient agrees with discussion and after shared medical decision making agrees with plan of care. All questions were answered to the patient's satisfaction. The patient is appropriate for outpatient treatment and follow-up. Given reasons to return. Differential Diagnosis Differential Diagnosis: Differential diagnostic considerations for fall injuries include syncope, concussion with loss of consciousness, concussion without loss of consciousness, vertebral fracture, extremity fracture/dislocation. Medical Records I have reviewed the following patient records and this information was taken into consideration when formulating the assessment and plan.: previous labs Imaging Data Attestation: I personally reviewed and interpreted this imaging study as follows: Radiologist's impression: ITS Impressions Head CT 09/07/25 17:47 IMPRESSION: 1. No fracture or acute intracranial process. 2. Equivocal thickening throughout the paranasal sinuses with small amount of fluid layering in the right maxillary and right sphenoid sinuses which could be seen with acute sinusitis. Cervical Spine CT 09/07/25 17:48 Impression: No acute abnormality. Thoracic/Lumbar Spine CT 09/07/25 17:56 Impression: No acute abnormality. Discharge Plan Discharge Clinical Impression: Back pain, Fall Patient Disposition: Home Condition: Stable Instructions: Back Pain (ED) Additional Instructions: Take anti-inflammatories (Aleve, Ibuprofen, Naproxen, etc) as needed and prescribed for breakthrough pain. You may take Tylenol with this. Take muscle relaxers and opiates as needed and prescribed. Recommend taking these at night as they may cause sedation. Do not drive, operate heavy machinery, drink alcohol while on muscle relaxers as this may cause further sedation. Follow-up with your primary care doctor in the next 1 week for further evaluation. Return to the ED if you experience worsening or severe pain, recurrent injury, numbness in groin, weakness of legs, going to the bathroom without meaning to, unable to keep down food or drink, or any other symptoms of concern. Patient Language: Telugu Prescriptions: New cyclobenzaprine 10 mg tablet 10 mg PO TID PRN (Reason: muscle spasm) Qty: 20 0RF hydrocodone-acetaminophen 5-325 mg tablet 1 tablet PO Q6H PRN (Reason: pain) Qty: 10 0RF No Action metformin 500 mg tablet 500 mg PO BID Qty: 60 0RF Rx Instructions: For the first week take 1 tablet daily then progressed to 1 tablet twice daily fluconazole [Diflucan] 150 mg tablet 150 mg PO Q72H Qty: 2 0RF Rx Instructions: as a single dose may repeat dose in 72 hours if symptoms have not improved sulfamethoxazole-trimethoprim [Bactrim DS] 800-160 mg tablet 1 tablet PO Q12H Qty: 14 0RF fluconazole [Diflucan] 150 mg tablet 150 mg PO ONCE Qty: 1 0RF Rx Instructions: as a single dose benzonatate 200 mg capsule 200 mg PO BID PRN (Reason: cough) Qty: 30 0RF ofloxacin 0.3 % drops 10 drp RIGHT EAR DAILY 7 Days Qty: 5 0RF permethrin [Elimite] 5 % cream 1 applic topical Q14D Qty: 60 0RF Rx Instructions: apply second treatment 14 days after first treatment if live lice remain fluconazole 150 mg tablet 150 mg PO DAILY Qty: 1 0RF Rx Instructions: administer on day 1 of therapy metformin 500 mg tablet 500 mg PO BID Qty: 60 0RF Follow-up/Referrals: PHYSICIAN,WHEEL BUFFER [Primary Care Provider, Internal Medicine]
[2025-09-07] MEDS: HYDROcodone/acetaminophen (*CRX) 5-325 MG TABLET 1 TAB PO (19:53)
[2025-09-07] MEDS: CYCLOBENZAPRINE HCL 10 MG TABLET PO (19:54)
[2025-09-07 20:02] VITALS: BP 122/75; PULSE 90; RESP 14; O2SAT 97
[2025-09-07 20:19] VITALS: BP 122/75; PULSE 90; RESP 14; O2SAT 97
== END 2025-09-07 20:04 | disposition home or self-care (01) ==
DX: S39.92XA Unspecified injury of lower back, initial encounter (principal); E11.9 Type 2 diabetes mellitus without complications; W19.XXXA Unspecified fall, initial encounter; Z79.84 Long term (current) use of oral hypoglycemic drugs
CPT/HCPCS: 70450; 72125; 72128; 72131; 99284; A9270